=== PATIENT | female | born 1985 | race Hispanic/Latino ===

== ENCOUNTER 2022-07-31 12:40 | Inpatient (IN) | payer BC ==
[~2022-07-31] VITALS: Ht 157.5 cm; Wt 67.8 kg
[~2022-07-31 12:40] MED LIST: GLYCOPYRROLATE INJ 0.2 MG/ML VIAL ONE; LIDOCAINE HCL 2% LOCAL INJ 5 ML SDV VIAL INJ ONE; METFORMIN HCL500 MG PO; MIRALAX17 GM PO; ONDANSETRON HCL INJ 2MG/ML 2ML 2 MG/ML VIAL ONE; POVIDONE IODINE 0.05% 0.05 % ML PO ONE; PROPOFOL IV EMULSION 10 MG/ML 20 ML VIAL ONE; XYZAL5 MG PO
[2022-07-31 13:25] LABS: BASOPHILS # (AUTO) 0.1 (0.0-0.1); BASOPHILS % 0.2 % (0.0-1.0); EOSINOPHILS % 0.1 % (0.0-6.0); HEMOGLOBIN 6.9 g/dL (12.0-16.0); LYMPHOCYTES # (AUTO) 1.2 (1.0-3.2); LYMPHOCYTES % 4.6 % (18.0-39.1); MEAN CORPUSCULAR HEMOGLOBIN 31.5 pg (28-32); MEAN CORPUSCULAR HGB CONC 31.5 g/dL (31-35); MONOCYTES # (AUTO) 1.4 (0.2-0.8); MONOCYTES % 5.5 % (4.4-11.3); NEUTROPHILS # (AUTO) 22.7 (2.1-6.9); NEUTROPHILS % 88.7 % (38.7-80.0); PLATELET COUNT 436 x10e3/uL (140-360); RED BLOOD COUNT 2.19 x10e6/uL (3.6-5.1); RED CELL DISTRIBUTION WIDTH 13.7 % (11.7-14.4)
[2022-07-31] MEDS ORDERED: SODIUM CHLORIDE 0.9% 500ML 500 ML ONE (13:28)
[2022-07-31 13:30] LABS: HEMATOCRIT 21.9 % (34.2-44.1)
[2022-07-31] MEDS ORDERED: SODIUM CHLORIDE 0.9% 250ML 250 ML IV ONE (13:30)
[2022-07-31] MEDS ORDERED: SODIUM CHLORIDE 0.9% 500ML 500 ML IV ONE (13:30)
[2022-07-31 13:38] LABS: ALANINE AMINOTRANSFERASE 30 IU/L (0-55); ALBUMIN 2.6 g/dL (3.5-5.0); ALBUMIN/GLOBULIN RATIO 0.4 (0.8-2.0); ALKALINE PHOSPHATASE 267 IU/L (40-150); ANION GAP 21.2 mmol/L (8-16); BLOOD UREA NITROGEN 54 mg/dL (7-26); BUN/CREATININE RATIO 6 (6-25); CALCIUM 8.6 mg/dL (8.4-10.2); CARBON DIOXIDE 24 mmol/L (22-29); CHLORIDE 94 mmol/L (98-107); CREATININE, SERUM 9.11 mg/dL (0.57-1.11); GLUCOSE 90 mg/dL (74-118); MAGNESIUM 1.8 MG/DL (1.3-2.1); SODIUM 134 mmol/L (136-145)
[2022-07-31 13:48] LABS: POTASSIUM 5.2 mmol/L (3.5-5.1)
[2022-07-31] MEDS ORDERED: Vancomycin IV 1 GM in SODIUM CHLORIDE 0.9% 250ML 250 ML IV ONE (14:00)
[2022-07-31] MEDS ORDERED: ONDANSETRON HCL INJ 2MG/ML 2ML 2 MG/ML VIAL IV PRN (14:30)
[2022-07-31] MEDS: HYDROCODONE/APAP 7.5MG-325MG 1 EA TAB PO PRN ×2 (15:32→21:37)
[2022-07-31 16:00] LABS: % IRON SATURATION 14 % (15-50); IRON 25 ug/dL (50-170); TOTAL IRON BINDING CAPACITY 179 ug/dL (261-478); TRANSFERRIN 128 mg/dL (180-382)
[2022-07-31] MEDS ORDERED: SOD POLYSTYRENE SULFONATE SUSP 15 GM/60 ML BTL PO ONE (16:00)
[2022-07-31 16:50] VITALS: BP 119/67; PULSE 102; RESP 16; TEMP 100.3; O2SAT 100
[2022-07-31 16:56] VITALS: BP 119/67; PULSE 102; RESP 16; TEMP 100.3; O2SAT 100
[2022-07-31 17:00] VITALS: BP 119/67; PULSE 102; RESP 16; TEMP 100.3; O2SAT 100
[2022-07-31] MEDS: EPOETIN ALFA-EPBX 10,000 UNIT/ML VIAL SC SCH (17:15)
[2022-07-31] MEDS ORDERED: CALCIUM ACETAT667 MG PO (17:34)
[2022-07-31] MEDS ORDERED: DIALYVITE TABL1 EACH (17:34)
[2022-07-31] MEDS ORDERED: ONDANSETRON ODT4 MG PO (17:34)
[2022-07-31] MEDS ORDERED: AMLODIPINE BESY10 MG PO (17:34)
[2022-07-31 20:00] VITALS: BP 100/54; PULSE 87; RESP 16; TEMP 97.7; O2SAT 98
[2022-08-01] VITALS (8 sets, daily range): BP systolic 101–143; BP diastolic 50–64; PULSE 87–102; RESP 18–19; TEMP 98.8–100.6; O2SAT 93–98
[2022-08-01 06:38] LABS: ALBUMIN 2.1 g/dL (3.5-5.0); ALBUMIN/GLOBULIN RATIO 0.4 (0.8-2.0); ANION GAP 23.4 mmol/L (8-16); CALCIUM 8.1 mg/dL (8.4-10.2); CREATININE, SERUM 10.75 mg/dL (0.57-1.11); POTASSIUM 5.4 mmol/L (3.5-5.1)
[2022-08-01 07:03] LABS: BASOPHILS # (AUTO) 0.1 (0.0-0.1); BASOPHILS % 0.4 % (0.0-1.0); EOSINOPHILS % 0.2 % (0.0-6.0); LYMPHOCYTES # (AUTO) 1.5 (1.0-3.2); MEAN CORPUSCULAR HEMOGLOBIN 31.3 pg (28-32); MEAN CORPUSCULAR HGB CONC 30.9 g/dL (31-35); MEAN CORPUSCULAR VOLUME 101.1 fL (81-99); MONOCYTES # (AUTO) 1.3 (0.2-0.8); MONOCYTES % 5.4 % (4.4-11.3); NEUTROPHILS # (AUTO) 21.6 (2.1-6.9); NEUTROPHILS % 86.6 % (38.7-80.0); PLATELET COUNT 373 x10e3/uL (140-360); RED BLOOD COUNT 1.76 x10e6/uL (3.6-5.1); RED CELL DISTRIBUTION WIDTH 13.9 % (11.7-14.4)
[2022-08-01 07:13] LABS: HEMATOCRIT 17.8 % (34.2-44.1); HEMOGLOBIN 5.5 g/dL (12.0-16.0)
[2022-08-01] MEDS ORDERED: SODIUM CHLORIDE 0.9% 250ML 250 ML IV ONE (08:15)
[2022-08-01 08:52] LABS: LYMPHOCYTES % (MANUAL) 6 % (19-48); NEUTROPHILS % (MANUAL) 85 % (40-74)
[2022-08-01 08:53] LABS: BAND NEUTROPHILS % (MANUAL) 1 %; EOSINOPHILS % (MANUAL) 1 % (0-7); MONOCYTES % (MANUAL) 5 % (3.4-9.0); PLATELET ESTIMATE ADEQUATE; PLATELET MORPHOLOGY COMMENT NORMAL; RBC MORPHOLOGY COMMENT NORMAL
[2022-08-01] MEDS ORDERED: SODIUM CHLORIDE 0.9% 1000ML 2,000 ML ONE (09:24)
[2022-08-01] MEDS ORDERED: SODIUM CHLORIDE 0.9% 250ML 250 ML ONE ×2 (10:10→16:11)
[2022-08-01 10:14] LABS: % IRON SATURATION 15 % (15-50); IRON 21 ug/dL (50-170); TOTAL IRON BINDING CAPACITY 140 ug/dL (261-478); TRANSFERRIN 100 mg/dL (180-382)
[2022-08-01] MEDS: HYDROCODONE/APAP 7.5MG-325MG 1 EA TAB PO PRN (16:37)
[2022-08-01] MEDS: Vancomycin IV 1 GM in SODIUM CHLORIDE 0.9% 250ML 250 ML IV SCH (16:45)
[2022-08-01 21:19] LABS: BASOPHILS # (AUTO) 0.1 (0.0-0.1); BASOPHILS % 0.3 % (0.0-1.0); EOSINOPHILS % 0.1 % (0.0-6.0); HEMOGLOBIN 7.5 g/dL (12.0-16.0); LYMPHOCYTES # (AUTO) 1.5 (1.0-3.2); LYMPHOCYTES % 5.6 % (18.0-39.1); MEAN CORPUSCULAR HEMOGLOBIN 31.6 pg (28-32); MEAN CORPUSCULAR VOLUME 95.8 fL (81-99); MONOCYTES # (AUTO) 1.4 (0.2-0.8); MONOCYTES % 5.3 % (4.4-11.3); NEUTROPHILS # (AUTO) 23.9 (2.1-6.9); NEUTROPHILS % 87.6 % (38.7-80.0); PLATELET COUNT 377 x10e3/uL (140-360); RED BLOOD COUNT 2.37 x10e6/uL (3.6-5.1); RED CELL DISTRIBUTION WIDTH 14.2 % (11.7-14.4)
[2022-08-01 21:21] LABS: HEMATOCRIT 22.7 % (34.2-44.1)
[2022-08-01] MEDS: IRON SUCROSE 100 MG in SODIUM CHLORIDE 0.9% 100 ML IV SCH (21:58)
[2022-08-02] VITALS (7 sets, daily range): BP systolic 92–120; BP diastolic 49–58; PULSE 83–91; RESP 16–19; TEMP 98–100.5; O2SAT 92–98
[2022-08-02] MEDS: HYDROCODONE/APAP 7.5MG-325MG 1 EA TAB PO PRN (04:46)
[2022-08-02 06:48] LABS: BASOPHILS # (AUTO) 0.1 (0.0-0.1); BASOPHILS % 0.3 % (0.0-1.0); EOSINOPHILS # (AUTO) 0.1 (0.0-0.4); EOSINOPHILS % 0.2 % (0.0-6.0); HEMATOCRIT 23.7 % (34.2-44.1); HEMOGLOBIN 7.7 g/dL (12.0-16.0); LYMPHOCYTES # (AUTO) 1.3 (1.0-3.2); LYMPHOCYTES % 4.7 % (18.0-39.1); MEAN CORPUSCULAR HGB CONC 32.5 g/dL (31-35); MEAN CORPUSCULAR VOLUME 95.6 fL (81-99); MONOCYTES # (AUTO) 1.3 (0.2-0.8); MONOCYTES % 4.8 % (4.4-11.3); NEUTROPHILS # (AUTO) 23.9 (2.1-6.9); NEUTROPHILS % 89.3 % (38.7-80.0); PLATELET COUNT 406 x10e3/uL (140-360); RED BLOOD COUNT 2.48 x10e6/uL (3.6-5.1); RED CELL DISTRIBUTION WIDTH 14.6 % (11.7-14.4)
[2022-08-02 07:03] LABS: ANION GAP 18.3 mmol/L (8-16); CALCIUM 8.1 mg/dL (8.4-10.2); CREATININE, SERUM 6.39 mg/dL (0.57-1.11); POTASSIUM 4.3 mmol/L (3.5-5.1)
[2022-08-02 07:05] LABS: CHOL/HDL RATIO 18.4 (3.0-3.6)
[2022-08-02] MEDS ORDERED: HEPARIN SOD (PORCINE) 1000 UNIT/ML 30ML ONE (07:26)
[2022-08-02] MEDS ORDERED: LIDOCAINE HCL 2% LOCAL 20 ML VIAL ONE (07:26)
[2022-08-02] MEDS ORDERED: SODIUM CHLORIDE 0.9% 1000ML 1,000 ML ONE ×2 (07:27→07:30)
[2022-08-02] MEDS ORDERED: NITROGLYCERIN/D5W 200 MCG/ML 250 ML ONE (07:27)
[2022-08-02] MEDS ORDERED: IOPAMIDOL 370 MG/ML 100 ML INFUS..BTL INJ ONE ×2 (07:27→11:24)
[2022-08-02] MEDS ORDERED: HEPARIN SOD/SOD CHLORIDE 2,000 ML ONE (07:27)
[2022-08-02] MEDS ORDERED: MIDAZOLAM HCL 2 MG/2 ML VIAL ONE (07:29)
[2022-08-02] MEDS ORDERED: VERAPAMIL HCL 2.5 MG/ML 2 ML VIAL ONE (07:29)
[2022-08-02] MEDS ORDERED: FENTANYL CITRATE/PF 100MCG/2 ML INJ ONE (07:29)
[2022-08-02 08:03] LABS: LYMPHOCYTES % (MANUAL) 3 % (19-48); MONOCYTES % (MANUAL) 9 % (3.4-9.0); NEUTROPHILS % (MANUAL) 86 % (40-74)
[2022-08-02 08:04] LABS: PLATELET ESTIMATE ADEQUATE; PLATELET MORPHOLOGY COMMENT NORMAL; RBC MORPHOLOGY COMMENT NORMAL
[2022-08-02] MEDS: GABAPENTIN 100 MG CAP PO SCH ×3 (09:06→20:45)
[2022-08-02] MEDS ORDERED: CLOPIDOGREL BISULFATE 75 MG TAB ONE (10:06)
[2022-08-02] MEDS ORDERED: ASPIRIN 325 MG TAB ONE (10:06)
[2022-08-02] MEDS ORDERED: ALTEPLASE RECOMBINANT 2 MG/2 ML VIAL ONE (10:34)
[2022-08-02] MEDS ORDERED: SODIUM CHLORIDE 0.9% 100 ML ONE (10:35)
[2022-08-02] MEDS: EPOETIN ALFA-EPBX 10,000 UNIT/ML VIAL SC SCH (16:50)
[2022-08-02] MEDS: HYDROCODONE/APAP 10MG-325MG TAB PO PRN (20:45)
[2022-08-03] VITALS (12 sets, daily range): BP systolic 61–138; BP diastolic 34–75; PULSE 61–113; RESP 16–19; TEMP 96.2–102.5; O2SAT 93–100
[2022-08-03] MEDS ORDERED: SODIUM CHLORIDE 0.9% 250ML 250 ML ONE ×3 (01:36→13:43)
[2022-08-03] MEDS: HYDROCODONE/APAP 10MG-325MG TAB PO PRN (01:39)
[2022-08-03] MEDS ORDERED: NALOXONE HCL INJ 0.4 MG/ML AMP ONE (02:57)
[2022-08-03] MEDS ORDERED: LIDOCAINE HCL 1% LOCAL INJ 20 ML VIAL ONE (03:00)
[2022-08-03 03:21] LABS: ABG HCO3 27 mmol/L (22-26); ABG PCO2 26 mmHg (35-45); ABG PH 7.62 (7.35-7.45); ABG PO2 157 mmHg (80-105); ABG TCO2 28
[2022-08-03 03:27] LABS: BASOPHILS # (AUTO) 0.1 (0.0-0.1); BASOPHILS % 0.3 % (0.0-1.0); EOSINOPHILS # (AUTO) 0.1 (0.0-0.4); EOSINOPHILS % 0.3 % (0.0-6.0); LYMPHOCYTES # (AUTO) 1.9 (1.0-3.2); LYMPHOCYTES % 7.5 % (18.0-39.1); MEAN CORPUSCULAR HEMOGLOBIN 30.9 pg (28-32); MEAN CORPUSCULAR HGB CONC 33.2 g/dL (31-35); MEAN CORPUSCULAR VOLUME 93.2 fL (81-99); MONOCYTES # (AUTO) 1.3 (0.2-0.8); MONOCYTES % 5.1 % (4.4-11.3); NEUTROPHILS # (AUTO) 21.6 (2.1-6.9); NEUTROPHILS % 84.9 % (38.7-80.0); PLATELET COUNT 408 x10e3/uL (140-360); RED CELL DISTRIBUTION WIDTH 14.3 % (11.7-14.4)
[2022-08-03 03:31] LABS: HEMATOCRIT 20.5 % (34.2-44.1); HEMOGLOBIN 6.8 g/dL (12.0-16.0)
[2022-08-03 03:35] LABS: ALBUMIN 1.6 g/dL (3.5-5.0); ALBUMIN/GLOBULIN RATIO 0.3 (0.8-2.0); ANION GAP 17.6 mmol/L (8-16); CALCIUM 7.9 mg/dL (8.4-10.2); CREATININE, SERUM 8.27 mg/dL (0.57-1.11); POTASSIUM 4.6 mmol/L (3.5-5.1)
[2022-08-03 04:31] LABS: BASOPHILS # (AUTO) 0.1 (0.0-0.1); BASOPHILS % 0.3 % (0.0-1.0); EOSINOPHILS # (AUTO) 0.1 (0.0-0.4); EOSINOPHILS % 0.2 % (0.0-6.0); HEMATOCRIT 21.1 % (34.2-44.1); LYMPHOCYTES % 7.8 % (18.0-39.1); MEAN CORPUSCULAR HEMOGLOBIN 30.8 pg (28-32); MEAN CORPUSCULAR HGB CONC 32.2 g/dL (31-35); MEAN CORPUSCULAR VOLUME 95.5 fL (81-99); MONOCYTES # (AUTO) 1.2 (0.2-0.8); MONOCYTES % 4.6 % (4.4-11.3); NEUTROPHILS # (AUTO) 21.3 (2.1-6.9); NEUTROPHILS % 85.2 % (38.7-80.0); PLATELET COUNT 398 x10e3/uL (140-360); RED BLOOD COUNT 2.21 x10e6/uL (3.6-5.1); RED CELL DISTRIBUTION WIDTH 14.8 % (11.7-14.4)
[2022-08-03 04:34] LABS: HEMOGLOBIN 6.8 g/dL (12.0-16.0)
[2022-08-03 04:40] LABS: INR 1.58; PROTHROMBIN TIME 19.4 seconds (11.9-14.5)
[2022-08-03 04:47] LABS: ANION GAP 18.4 mmol/L (8-16); CALCIUM 7.8 mg/dL (8.4-10.2); CREATININE, SERUM 8.35 mg/dL (0.57-1.11); POTASSIUM 4.4 mmol/L (3.5-5.1)
[2022-08-03] MEDS ORDERED: SODIUM CHLORIDE 0.9% 250ML 250 ML IV ONE (06:15)
[2022-08-03] MEDS ORDERED: SODIUM CHLORIDE 0.9% 500ML 500 ML IV ONE (09:30)
[2022-08-03] MEDS ORDERED: SODIUM CHLORIDE 0.9% 1000ML 2,000 ML IV PRN (10:00)
[2022-08-03] MEDS ORDERED: KETAMINE HCL INJ 50 MG/ML 10 ML VIAL ONE (13:13)
[2022-08-03] MEDS ORDERED: MIDAZOLAM HCL 2 MG/2 ML VIAL ONE (13:13)
[2022-08-03] MEDS: IRON SUCROSE 100 MG in SODIUM CHLORIDE 0.9% 100 ML IV SCH (15:30)
[2022-08-03] MEDS: Vancomycin IV 1 GM in SODIUM CHLORIDE 0.9% 250ML 250 ML IV SCH (15:31)
[2022-08-03] MEDS: ASPIRIN 81 MG ENTERIC COATED PO SCH (16:15)
[2022-08-03] MEDS: CLOPIDOGREL BISULFATE 75 MG TAB PO SCH (16:16)
[2022-08-03] MEDS: TRAMADOL HCL 50 MG TAB PO PRN (16:16)
[2022-08-03 19:16] LABS: BASOPHILS # (AUTO) 0.1 (0.0-0.1); BASOPHILS % 0.3 % (0.0-1.0); EOSINOPHILS # (AUTO) 0.1 (0.0-0.4); EOSINOPHILS % 0.3 % (0.0-6.0); HEMATOCRIT 25.5 % (34.2-44.1); HEMOGLOBIN 8.5 g/dL (12.0-16.0); LYMPHOCYTES # (AUTO) 1.9 (1.0-3.2); LYMPHOCYTES % 7.3 % (18.0-39.1); MEAN CORPUSCULAR HEMOGLOBIN 29.6 pg (28-32); MEAN CORPUSCULAR HGB CONC 33.3 g/dL (31-35); MEAN CORPUSCULAR VOLUME 88.9 fL (81-99); MONOCYTES # (AUTO) 1.6 (0.2-0.8); MONOCYTES % 5.9 % (4.4-11.3); NEUTROPHILS # (AUTO) 22.4 (2.1-6.9); NEUTROPHILS % 83.8 % (38.7-80.0); PLATELET COUNT 389 x10e3/uL (140-360); RED BLOOD COUNT 2.87 x10e6/uL (3.6-5.1); RED CELL DISTRIBUTION WIDTH 16.7 % (11.7-14.4)
[2022-08-03] MEDS: ACETAMINOPHEN 325 MG TAB PO PRN (20:24)
[2022-08-04] VITALS (7 sets, daily range): BP systolic 107–118; BP diastolic 57–67; PULSE 87–103; RESP 17–20; TEMP 99–99.8; O2SAT 97–100
[2022-08-04 06:16] LABS: ANION GAP 18.5 mmol/L (8-16); CALCIUM 8.3 mg/dL (8.4-10.2); CREATININE, SERUM 5.86 mg/dL (0.57-1.11); POTASSIUM 4.5 mmol/L (3.5-5.1)
[2022-08-04 07:24] LABS: BASOPHILS # (AUTO) 0.1 (0.0-0.1); BASOPHILS % 0.5 % (0.0-1.0); EOSINOPHILS # (AUTO) 0.2 (0.0-0.4); EOSINOPHILS % 0.8 % (0.0-6.0); HEMATOCRIT 23.3 % (34.2-44.1); HEMOGLOBIN 7.9 g/dL (12.0-16.0); LYMPHOCYTES # (AUTO) 2.4 (1.0-3.2); LYMPHOCYTES % 9.4 % (18.0-39.1); MEAN CORPUSCULAR HEMOGLOBIN 30.7 pg (28-32); MEAN CORPUSCULAR HGB CONC 33.9 g/dL (31-35); MEAN CORPUSCULAR VOLUME 90.7 fL (81-99); MONOCYTES # (AUTO) 1.7 (0.2-0.8); MONOCYTES % 6.5 % (4.4-11.3); NEUTROPHILS # (AUTO) 20.5 (2.1-6.9); NEUTROPHILS % 80.3 % (38.7-80.0); RED BLOOD COUNT 2.57 x10e6/uL (3.6-5.1); RED CELL DISTRIBUTION WIDTH 17.2 % (11.7-14.4)
[2022-08-04 07:31] LABS: PLATELET COUNT 453 x10e3/uL (140-360)
[2022-08-04] MEDS: ASPIRIN 81 MG ENTERIC COATED PO SCH (09:11)
[2022-08-04] MEDS: CLOPIDOGREL BISULFATE 75 MG TAB PO SCH (09:11)
[2022-08-04 11:27] LABS: EOSINOPHILS % (MANUAL) 3 % (0-7); LYMPHOCYTES % (MANUAL) 11 % (19-48); MONOCYTES % (MANUAL) 7 % (3.4-9.0); NEUTROPHILS % (MANUAL) 79 % (40-74); PLATELET ESTIMATE SLIGHTLY INCREASED; PLATELET MORPHOLOGY COMMENT NORMAL
[2022-08-04 11:51] LABS: BASOPHILS # (AUTO) 0.1 (0.0-0.1); BASOPHILS % 0.4 % (0.0-1.0); EOSINOPHILS # (AUTO) 0.2 (0.0-0.4); EOSINOPHILS % 0.9 % (0.0-6.0); HEMATOCRIT 24.2 % (34.2-44.1); HEMOGLOBIN 8.1 g/dL (12.0-16.0); LYMPHOCYTES # (AUTO) 2.2 (1.0-3.2); LYMPHOCYTES % 8.5 % (18.0-39.1); MEAN CORPUSCULAR HEMOGLOBIN 30.3 pg (28-32); MEAN CORPUSCULAR HGB CONC 33.5 g/dL (31-35); MEAN CORPUSCULAR VOLUME 90.6 fL (81-99); MONOCYTES # (AUTO) 1.7 (0.2-0.8); MONOCYTES % 6.6 % (4.4-11.3); NEUTROPHILS # (AUTO) 20.8 (2.1-6.9); NEUTROPHILS % 79.8 % (38.7-80.0); PLATELET COUNT 442 x10e3/uL (140-360); RED BLOOD COUNT 2.67 x10e6/uL (3.6-5.1); RED CELL DISTRIBUTION WIDTH 16.9 % (11.7-14.4)
[2022-08-04 13:24] LABS: EOSINOPHILS % (MANUAL) 2 % (0-7); LYMPHOCYTES % (MANUAL) 16 % (19-48); MONOCYTES % (MANUAL) 5 % (3.4-9.0); NEUTROPHILS % (MANUAL) 77 % (40-74); PLATELET ESTIMATE SLIGHTLY INCREASED; PLATELET MORPHOLOGY COMMENT NORMAL
[2022-08-04] MEDS: EPOETIN ALFA-EPBX 10,000 UNIT/ML VIAL SC SCH (17:14)
[2022-08-04] MEDS: TRAMADOL HCL 50 MG TAB PO PRN (23:13)
[2022-08-04 23:43] LABS: INR 1.5; PROTHROMBIN TIME 18.6 seconds (11.9-14.5)
[2022-08-05] VITALS (10 sets, daily range): BP systolic 105–115; BP diastolic 58–63; PULSE 86–96; RESP 15–19; TEMP 98.2–99.7; O2SAT 92–100
[2022-08-05 05:41] LABS: INR 1.45; PROTHROMBIN TIME 18.2 seconds (11.9-14.5)
[2022-08-05] MEDS: CLOPIDOGREL BISULFATE 75 MG TAB PO SCH (08:47)
[2022-08-05] MEDS: ASPIRIN 81 MG ENTERIC COATED PO SCH (08:47)
[2022-08-05] MEDS: MUPIROCIN 2% OINT 22 GM TUBE TOP SCH (17:10)
[2022-08-05] MEDS: GABAPENTIN 100 MG CAP PO PRN (23:34)
[2022-08-05] MEDS: TRAMADOL HCL 50 MG TAB PO PRN (23:34)
[2022-08-06] VITALS (10 sets, daily range): BP systolic 104–164; BP diastolic 59–81; PULSE 80–99; RESP 16–20; TEMP 97.5–99.4; O2SAT 93–98
[2022-08-06 06:11] LABS: BASOPHILS # (AUTO) 0.1 (0.0-0.1); BASOPHILS % 0.3 % (0.0-1.0); EOSINOPHILS # (AUTO) 0.4 (0.0-0.4); EOSINOPHILS % 1.4 % (0.0-6.0); LYMPHOCYTES # (AUTO) 2.7 (1.0-3.2); LYMPHOCYTES % 9.6 % (18.0-39.1); MEAN CORPUSCULAR HEMOGLOBIN 30.3 pg (28-32); MEAN CORPUSCULAR VOLUME 91.7 fL (81-99); MONOCYTES # (AUTO) 1.6 (0.2-0.8); MONOCYTES % 5.5 % (4.4-11.3); NEUTROPHILS # (AUTO) 21.9 (2.1-6.9); NEUTROPHILS % 77.2 % (38.7-80.0); PLATELET COUNT 572 x10e3/uL (140-360); RED BLOOD COUNT 2.18 x10e6/uL (3.6-5.1); RED CELL DISTRIBUTION WIDTH 17.5 % (11.7-14.4)
[2022-08-06 06:14] LABS: HEMOGLOBIN 6.6 g/dL (12.0-16.0)
[2022-08-06 06:15] LABS: ALBUMIN 1.3 g/dL (3.5-5.0); ALBUMIN/GLOBULIN RATIO 0.3 (0.8-2.0); ANION GAP 19.5 mmol/L (8-16); CREATININE, SERUM 9.97 mg/dL (0.57-1.11); POTASSIUM 5.5 mmol/L (3.5-5.1)
[2022-08-06] MEDS ORDERED: SODIUM CHLORIDE 0.9% 250ML 250 ML IV ONE (07:00)
[2022-08-06 07:20] LABS: BAND NEUTROPHILS % (MANUAL) 1 %; EOSINOPHILS % (MANUAL) 4 % (0-7); LYMPHOCYTES % (MANUAL) 11 % (19-48); MONOCYTES % (MANUAL) 4 % (3.4-9.0); NEUTROPHILS % (MANUAL) 79 % (40-74); PLATELET ESTIMATE SLIGHTLY INCREASED
[2022-08-06 07:21] LABS: ANISOCYTOSIS SLIGHT; HYPOCHROMASIA SLIGHT; PLATELET MORPHOLOGY COMMENT NORMAL; RBC MORPHOLOGY COMMENT NORMAL
[2022-08-06] MEDS: ASPIRIN 81 MG ENTERIC COATED PO SCH (09:00)
[2022-08-06] MEDS: MUPIROCIN 2% OINT 22 GM TUBE TOP SCH ×2 (09:00→18:27)
[2022-08-06] MEDS: CLOPIDOGREL BISULFATE 75 MG TAB PO SCH (10:00)
[2022-08-06] MEDS ORDERED: SODIUM CHLORIDE 0.9% 250ML 250 ML ONE (15:45)
[2022-08-06] MEDS ORDERED: Vancomycin IV 1 GM in SODIUM CHLORIDE 0.9% 250ML 250 ML IV SCH (20:00)
[2022-08-06] MEDS: TRAMADOL HCL 50 MG TAB PO PRN (20:07)
[2022-08-06] MEDS: IRON SUCROSE 100 MG in SODIUM CHLORIDE 0.9% 100 ML IV SCH (20:08)
[2022-08-07] VITALS (9 sets, daily range): BP systolic 115–139; BP diastolic 64–71; PULSE 84–109; RESP 16–18; TEMP 98.1–100.6; O2SAT 95–98
[2022-08-07] MEDS: ACETAMINOPHEN 325 MG TAB PO PRN (01:20)
[2022-08-07 05:33] LABS: BASOPHILS # (AUTO) 0.2 (0.0-0.1); BASOPHILS % 0.7 % (0.0-1.0); EOSINOPHILS # (AUTO) 0.4 (0.0-0.4); EOSINOPHILS % 1.3 % (0.0-6.0); HEMATOCRIT 30.3 % (34.2-44.1); HEMOGLOBIN 10.3 g/dL (12.0-16.0); LYMPHOCYTES % 10.7 % (18.0-39.1); MEAN CORPUSCULAR VOLUME 88.3 fL (81-99); MONOCYTES # (AUTO) 1.5 (0.2-0.8); MONOCYTES % 5.5 % (4.4-11.3); NEUTROPHILS % 74.9 % (38.7-80.0); PLATELET COUNT 501 x10e3/uL (140-360); RED BLOOD COUNT 3.43 x10e6/uL (3.6-5.1); RED CELL DISTRIBUTION WIDTH 17.6 % (11.7-14.4)
[2022-08-07 09:08] LABS: ANISOCYTOSIS SLIGHT; BAND NEUTROPHILS % (MANUAL) 2 %; LYMPHOCYTES % (MANUAL) 12 % (19-48); MONOCYTES % (MANUAL) 9 % (3.4-9.0); NEUTROPHILS % (MANUAL) 74 % (40-74); PLATELET ESTIMATE ADEQUATE; PLATELET MORPHOLOGY COMMENT NORMAL; RBC MORPHOLOGY COMMENT NORMAL
[2022-08-07 09:09] LABS: TOXIC GRANULATION SLIGHT; VACUOLE,WBC SLIGHT
[2022-08-07] MEDS: CLOPIDOGREL BISULFATE 75 MG TAB PO SCH (09:47)
[2022-08-07] MEDS: ASPIRIN 81 MG ENTERIC COATED PO SCH (09:47)
[2022-08-07] MEDS: MUPIROCIN 2% OINT 22 GM TUBE TOP SCH ×2 (09:47→17:35)
[2022-08-07] MEDS: TRAMADOL HCL 50 MG TAB PO PRN ×2 (12:37→21:08)
[2022-08-07 14:12] LABS: INR 1.34; PROTHROMBIN TIME 17.1 seconds (11.9-14.5)
[2022-08-07 14:14] LABS: PARTIAL THROMBOPLASTIN TIME 64.1 seconds (23.8-35.5)
[2022-08-07] MEDS: CEFTRIAXONE 2 GM in SODIUM CHLORIDE 0.9% 100 ML IV SCH (15:26)
[2022-08-07] MEDS: EPOETIN ALFA-EPBX 10,000 UNIT/ML VIAL SC SCH (15:26)
[2022-08-08] VITALS (9 sets, daily range): BP systolic 127–140; BP diastolic 66–76; PULSE 80–97; RESP 16–22; TEMP 97.8–98.9; O2SAT 98–100
[2022-08-08 05:31] LABS: BASOPHILS # (AUTO) 0.1 (0.0-0.1); BASOPHILS % 0.4 % (0.0-1.0); EOSINOPHILS # (AUTO) 0.4 (0.0-0.4); EOSINOPHILS % 1.4 % (0.0-6.0); HEMATOCRIT 34.1 % (34.2-44.1); HEMOGLOBIN 11.4 g/dL (12.0-16.0); LYMPHOCYTES # (AUTO) 3.1 (1.0-3.2); LYMPHOCYTES % 10.2 % (18.0-39.1); MEAN CORPUSCULAR HEMOGLOBIN 30.2 pg (28-32); MEAN CORPUSCULAR HGB CONC 33.4 g/dL (31-35); MEAN CORPUSCULAR VOLUME 90.5 fL (81-99); MONOCYTES # (AUTO) 1.8 (0.2-0.8); MONOCYTES % 5.8 % (4.4-11.3); NEUTROPHILS # (AUTO) 23.4 (2.1-6.9); NEUTROPHILS % 75.5 % (38.7-80.0); PLATELET COUNT 562 x10e3/uL (140-360); RED BLOOD COUNT 3.77 x10e6/uL (3.6-5.1); RED CELL DISTRIBUTION WIDTH 18.3 % (11.7-14.4)
[2022-08-08 06:12] LABS: ANION GAP 22.6 mmol/L (8-16); CALCIUM 8.4 mg/dL (8.4-10.2); CREATININE, SERUM 7.59 mg/dL (0.57-1.11); POTASSIUM 4.6 mmol/L (3.5-5.1)
[2022-08-08 07:54] LABS: BAND NEUTROPHILS % (MANUAL) 2 %; EOSINOPHILS % (MANUAL) 3 % (0-7); LYMPHOCYTES % (MANUAL) 8 % (19-48); METAMYELOCYTES % (MANUAL) 2 % (0-0); MONOCYTES % (MANUAL) 3 % (3.4-9.0); MYELOCYTES % (MANUAL) 2 % (0-0); NEUTROPHILS % (MANUAL) 79 % (40-74)
[2022-08-08 07:55] LABS: ANISOCYTOSIS SLIGHT; PLATELET ESTIMATE MODERATELY INCREASED; PLATELET MORPHOLOGY COMMENT NORMAL; POLYCHROMASIA FEW; RBC MORPHOLOGY COMMENT NORMAL; TOXIC GRANULATION MODERATE
[2022-08-08] MEDS: ASPIRIN 81 MG ENTERIC COATED PO SCH (09:52)
[2022-08-08] MEDS: MUPIROCIN 2% OINT 22 GM TUBE TOP SCH ×2 (09:53→18:16)
[2022-08-08] MEDS: CLOPIDOGREL BISULFATE 75 MG TAB PO SCH (09:53)
[2022-08-08] MEDS: TRAMADOL HCL 50 MG TAB PO PRN ×5 (12:49→14:51)
[2022-08-08] MEDS: CEFTRIAXONE 2 GM in SODIUM CHLORIDE 0.9% 100 ML IV SCH (14:45)
[2022-08-08] MEDS ORDERED: SODIUM CHLORIDE 0.9% 100 ML ONE (16:51)
[2022-08-08] MEDS: IRON SUCROSE 100 MG in SODIUM CHLORIDE 0.9% 100 ML IV SCH (17:48)
[2022-08-08] MEDS: ACETAMINOPHEN 325 MG TAB PO PRN (21:52)
[2022-08-08] MEDS: GABAPENTIN 100 MG CAP PO PRN (21:53)
[2022-08-09] VITALS (8 sets, daily range): BP systolic 107–126; BP diastolic 62–71; PULSE 92–99; RESP 16–18; TEMP 98–98.9; O2SAT 98–100
[2022-08-09] MEDS: TRAMADOL HCL 50 MG TAB PO PRN (03:26)
[2022-08-09 05:53] LABS: BASOPHILS # (AUTO) 0.1 (0.0-0.1); BASOPHILS % 0.5 % (0.0-1.0); EOSINOPHILS # (AUTO) 0.3 (0.0-0.4); EOSINOPHILS % 1.1 % (0.0-6.0); HEMATOCRIT 35.3 % (34.2-44.1); HEMOGLOBIN 11.5 g/dL (12.0-16.0); LYMPHOCYTES # (AUTO) 2.6 (1.0-3.2); LYMPHOCYTES % 10.2 % (18.0-39.1); MEAN CORPUSCULAR HEMOGLOBIN 29.9 pg (28-32); MEAN CORPUSCULAR HGB CONC 32.6 g/dL (31-35); MEAN CORPUSCULAR VOLUME 91.9 fL (81-99); MONOCYTES # (AUTO) 1.5 (0.2-0.8); NEUTROPHILS # (AUTO) 19.4 (2.1-6.9); NEUTROPHILS % 76.9 % (38.7-80.0); PLATELET COUNT 561 x10e3/uL (140-360); RED BLOOD COUNT 3.84 x10e6/uL (3.6-5.1); RED CELL DISTRIBUTION WIDTH 18.8 % (11.7-14.4)
[2022-08-09 06:07] LABS: INR 1.28; PROTHROMBIN TIME 16.5 seconds (11.9-14.5)
[2022-08-09 06:09] LABS: PARTIAL THROMBOPLASTIN TIME 62.2 seconds (23.8-35.5)
[2022-08-09 06:50] LABS: BAND NEUTROPHILS % (MANUAL) 2 %; EOSINOPHILS % (MANUAL) 2 % (0-7); LYMPHOCYTES % (MANUAL) 12 % (19-48); MONOCYTES % (MANUAL) 4 % (3.4-9.0); NEUTROPHILS % (MANUAL) 79 % (40-74)
[2022-08-09 06:51] LABS: ANISOCYTOSIS SLIGHT; PLATELET ESTIMATE ADEQUATE; PLATELET MORPHOLOGY COMMENT NORMAL; POLYCHROMASIA FEW
[2022-08-09] MEDS: MUPIROCIN 2% OINT 22 GM TUBE TOP SCH ×2 (08:44→17:11)
[2022-08-09] MEDS: CLOPIDOGREL BISULFATE 75 MG TAB PO SCH (08:46)
[2022-08-09] MEDS: ASPIRIN 81 MG ENTERIC COATED PO SCH (08:46)
[2022-08-09 12:36] LABS: ALBUMIN 1.4 g/dL (3.5-5.0); BILIRUBIN,DIRECT 0.9 mg/dL (0.0-0.5)
[2022-08-09] MEDS: CEFTRIAXONE 2 GM in SODIUM CHLORIDE 0.9% 100 ML IV SCH (13:42)
[2022-08-09] MEDS: GABAPENTIN 100 MG CAP PO PRN (22:05)
[2022-08-10] VITALS (7 sets, daily range): BP systolic 121–149; BP diastolic 66–76; PULSE 85–107; RESP 18–20; TEMP 97.6–99.3; O2SAT 96–100
[2022-08-10 05:40] LABS: BASOPHILS # (AUTO) 0.2 (0.0-0.1); BASOPHILS % 0.8 % (0.0-1.0); EOSINOPHILS # (AUTO) 0.3 (0.0-0.4); EOSINOPHILS % 1.3 % (0.0-6.0); HEMATOCRIT 30.2 % (34.2-44.1); HEMOGLOBIN 10.1 g/dL (12.0-16.0); LYMPHOCYTES # (AUTO) 2.8 (1.0-3.2); LYMPHOCYTES % 10.9 % (18.0-39.1); MEAN CORPUSCULAR HEMOGLOBIN 30.3 pg (28-32); MEAN CORPUSCULAR HGB CONC 33.4 g/dL (31-35); MEAN CORPUSCULAR VOLUME 90.7 fL (81-99); MONOCYTES # (AUTO) 1.5 (0.2-0.8); MONOCYTES % 5.7 % (4.4-11.3); NEUTROPHILS # (AUTO) 19.6 (2.1-6.9); NEUTROPHILS % 76.3 % (38.7-80.0); PLATELET COUNT 518 x10e3/uL (140-360); RED BLOOD COUNT 3.33 x10e6/uL (3.6-5.1); RED CELL DISTRIBUTION WIDTH 18.7 % (11.7-14.4)
[2022-08-10 06:10] LABS: ANION GAP 17.2 mmol/L (8-16); CALCIUM 8.5 mg/dL (8.4-10.2); CREATININE, SERUM 7.65 mg/dL (0.57-1.11); POTASSIUM 4.2 mmol/L (3.5-5.1)
[2022-08-10 07:44] LABS: ANISOCYTOSIS SLIGHT; BAND NEUTROPHILS % (MANUAL) 1 %; LYMPHOCYTES % (MANUAL) 10 % (19-48); MONOCYTES % (MANUAL) 7 % (3.4-9.0); NEUTROPHILS % (MANUAL) 81 % (40-74); PLATELET ESTIMATE ADEQUATE; PLATELET MORPHOLOGY COMMENT NORMAL
[2022-08-10 07:45] LABS: RBC MORPHOLOGY COMMENT NORMAL
[2022-08-10] MEDS: CLOPIDOGREL BISULFATE 75 MG TAB PO SCH (08:46)
[2022-08-10] MEDS: MUPIROCIN 2% OINT 22 GM TUBE TOP SCH ×2 (08:46→17:31)
[2022-08-10] MEDS: ASPIRIN 81 MG ENTERIC COATED PO SCH (08:46)
[2022-08-10] MEDS ORDERED: PHYTONADIONE 10 MG/ML AMP SC ONE (09:00)
[2022-08-10] MEDS: CEFTRIAXONE 2 GM in SODIUM CHLORIDE 0.9% 100 ML IV SCH (15:04)
[2022-08-10] MEDS: IRON SUCROSE 100 MG in SODIUM CHLORIDE 0.9% 100 ML IV SCH (17:31)
[2022-08-10 19:59] LABS: INR 1.18; PROTHROMBIN TIME 15.5 seconds (11.9-14.5)
[2022-08-10] MEDS: PRAVASTATIN 20 MG TAB PO SCH (21:52)
[2022-08-11] VITALS (7 sets, daily range): BP systolic 110–159; BP diastolic 64–76; PULSE 93–105; RESP 16–20; TEMP 98.3–99.1; O2SAT 98–99
[2022-08-11] MEDS: ASPIRIN 81 MG ENTERIC COATED PO SCH (09:21)
[2022-08-11] MEDS: CLOPIDOGREL BISULFATE 75 MG TAB PO SCH (09:21)
[2022-08-11] MEDS: MUPIROCIN 2% OINT 22 GM TUBE TOP SCH ×2 (09:22→17:45)
[2022-08-11] MEDS ORDERED: NIFEDIPINE CR 30 MG TAB PO SCH (11:30)
[2022-08-11] MEDS ORDERED: PHYTONADIONE 5 MG TAB PO ONE (12:30)
[2022-08-11] MEDS: CEFTRIAXONE 2 GM in SODIUM CHLORIDE 0.9% 100 ML IV SCH (13:03)
[2022-08-11] MEDS: METOPROLOL SUCCINATE 25 MG TAB XL PO SCH (17:44)
[2022-08-11] MEDS: PRAVASTATIN 20 MG TAB PO SCH (21:18)
[2022-08-12] VITALS (9 sets, daily range): BP systolic 101–158; BP diastolic 56–85; PULSE 74–96; RESP 16–21; TEMP 97.5–98.3; O2SAT 97–100
[2022-08-12 06:02] LABS: BASOPHILS # (AUTO) 0.1 (0.0-0.1); BASOPHILS % 0.7 % (0.0-1.0); EOSINOPHILS # (AUTO) 0.3 (0.0-0.4); EOSINOPHILS % 1.7 % (0.0-6.0); HEMATOCRIT 30.6 % (34.2-44.1); LYMPHOCYTES # (AUTO) 2.3 (1.0-3.2); LYMPHOCYTES % 11.9 % (18.0-39.1); MEAN CORPUSCULAR HEMOGLOBIN 30.2 pg (28-32); MEAN CORPUSCULAR HGB CONC 32.7 g/dL (31-35); MEAN CORPUSCULAR VOLUME 92.4 fL (81-99); MONOCYTES # (AUTO) 1.2 (0.2-0.8); MONOCYTES % 6.1 % (4.4-11.3); NEUTROPHILS % 75.8 % (38.7-80.0); PLATELET COUNT 604 x10e3/uL (140-360); RED BLOOD COUNT 3.31 x10e6/uL (3.6-5.1); RED CELL DISTRIBUTION WIDTH 18.4 % (11.7-14.4)
[2022-08-12 06:19] LABS: INR 1.15; PROTHROMBIN TIME 15.2 seconds (11.9-14.5)
[2022-08-12] MEDS: METOPROLOL SUCCINATE 25 MG TAB XL PO SCH (09:00)
[2022-08-12] MEDS: MUPIROCIN 2% OINT 22 GM TUBE TOP SCH (09:52)
[2022-08-12] MEDS: ASPIRIN 81 MG ENTERIC COATED PO SCH (09:52)
[2022-08-12] MEDS: CLOPIDOGREL BISULFATE 75 MG TAB PO SCH (09:52)
[2022-08-12] MEDS: TRAMADOL HCL 50 MG TAB PO PRN (12:06)
[2022-08-12] MEDS: CEFTRIAXONE 2 GM in SODIUM CHLORIDE 0.9% 100 ML IV SCH (13:40)
[2022-08-12 18:30] LABS: BASOPHILS # (AUTO) 0.1 (0.0-0.1); BASOPHILS % 0.7 % (0.0-1.0); EOSINOPHILS # (AUTO) 0.3 (0.0-0.4); EOSINOPHILS % 1.5 % (0.0-6.0); HEMATOCRIT 32.7 % (34.2-44.1); HEMOGLOBIN 10.8 g/dL (12.0-16.0); LYMPHOCYTES # (AUTO) 2.1 (1.0-3.2); LYMPHOCYTES % 10.8 % (18.0-39.1); MEAN CORPUSCULAR HEMOGLOBIN 30.2 pg (28-32); MEAN CORPUSCULAR VOLUME 91.3 fL (81-99); MONOCYTES # (AUTO) 1.2 (0.2-0.8); NEUTROPHILS % 78.5 % (38.7-80.0); PLATELET COUNT 651 x10e3/uL (140-360); RED BLOOD COUNT 3.58 x10e6/uL (3.6-5.1)
[2022-08-12] MEDS: PRAVASTATIN 20 MG TAB PO SCH (22:01)
[2022-08-12] MEDS: ACETAMINOPHEN 325 MG TAB PO PRN (22:02)
[2022-08-13] VITALS (7 sets, daily range): BP systolic 130–143; BP diastolic 66–81; PULSE 80–100; RESP 14–19; TEMP 97.4–99.2; O2SAT 95–100
[2022-08-13] MEDS ORDERED: MUPIROCIN 2% OINT 22 GM TUBE ONE (06:24)
[2022-08-13] MEDS ORDERED: BUPIVACAINE HCL 0.5% INJ 30 ML VIAL INJ ONE (06:24)
[2022-08-13] MEDS ORDERED: BETAMETHASONE DISODIUM PHOS 6 MG/ML VIAL ONE (06:24)
[2022-08-13] MEDS ORDERED: LIDOCAINE HCL 1% LOCAL INJ 20 ML VIAL ONE (06:24)
[2022-08-13] MEDS: ONDANSETRON HCL 4 MG ORAL DISINTEGRATING TAB PO PRN (09:23)
[2022-08-13] MEDS: METOPROLOL SUCCINATE 25 MG TAB XL PO SCH (09:39)
[2022-08-13] MEDS ORDERED: POVIDONE IODINE 0.05% 0.05 % ML PO ONE (12:52)
[2022-08-13] MEDS ORDERED: LIDOCAINE HCL 2% LOCAL INJ 5 ML SDV VIAL INJ ONE (12:52)
[2022-08-13] MEDS ORDERED: PROPOFOL IV EMULSION 10 MG/ML 20 ML VIAL ONE (12:52)
[2022-08-13] MEDS ORDERED: ONDANSETRON HCL INJ 2MG/ML 2ML 2 MG/ML VIAL ONE (12:52)
[2022-08-13] MEDS ORDERED: FENTANYL CITRATE/PF 100MCG/2 ML INJ ONE (13:03)
[2022-08-13] MEDS ORDERED: MIDAZOLAM HCL 2 MG/2 ML VIAL ONE (13:03)
[2022-08-13] MEDS: CEFTRIAXONE 2 GM in SODIUM CHLORIDE 0.9% 100 ML IV SCH (13:54)
[2022-08-13] MEDS: GABAPENTIN 100 MG CAP PO PRN (15:21)
[2022-08-13] MEDS: TRAMADOL HCL 50 MG TAB PO PRN (16:14)
[2022-08-13] MEDS: IRON SUCROSE 100 MG in SODIUM CHLORIDE 0.9% 100 ML IV SCH (17:01)
[2022-08-13] MEDS: PRAVASTATIN 20 MG TAB PO SCH (20:32)
[2022-08-13] MEDS: CLOPIDOGREL BISULFATE 75 MG TAB PO SCH (20:32)
[2022-08-13] MEDS: ASPIRIN 81 MG ENTERIC COATED PO SCH (20:33)
[2022-08-14] VITALS (8 sets, daily range): BP systolic 123–131; BP diastolic 64–71; PULSE 78–92; RESP 16–19; TEMP 97–99; O2SAT 97–100
[2022-08-14 06:03] LABS: BASOPHILS # (AUTO) 0.2 (0.0-0.1); BASOPHILS % 0.9 % (0.0-1.0); EOSINOPHILS # (AUTO) 0.3 (0.0-0.4); EOSINOPHILS % 1.7 % (0.0-6.0); HEMATOCRIT 26.8 % (34.2-44.1); HEMOGLOBIN 8.4 g/dL (12.0-16.0); LYMPHOCYTES # (AUTO) 2.8 (1.0-3.2); LYMPHOCYTES % 14.7 % (18.0-39.1); MEAN CORPUSCULAR HEMOGLOBIN 30.2 pg (28-32); MEAN CORPUSCULAR HGB CONC 31.3 g/dL (31-35); MEAN CORPUSCULAR VOLUME 96.4 fL (81-99); MONOCYTES % 10.2 % (4.4-11.3); NEUTROPHILS # (AUTO) 13.5 (2.1-6.9); NEUTROPHILS % 70.3 % (38.7-80.0); PLATELET COUNT 655 x10e3/uL (140-360); RED BLOOD COUNT 2.78 x10e6/uL (3.6-5.1); RED CELL DISTRIBUTION WIDTH 18.1 % (11.7-14.4)
[2022-08-14 06:40] LABS: ANION GAP 21.9 mmol/L (8-16); CALCIUM 8.7 mg/dL (8.4-10.2); CREATININE, SERUM 7.96 mg/dL (0.57-1.11); MAGNESIUM 2.1 MG/DL (1.3-2.1); POTASSIUM 4.9 mmol/L (3.5-5.1)
[2022-08-14] MEDS: TRAMADOL HCL 50 MG TAB PO PRN (06:42)
[2022-08-14] MEDS: ONDANSETRON HCL 4 MG ORAL DISINTEGRATING TAB PO PRN ×2 (06:42→16:32)
[2022-08-14 06:58] LABS: PHOSPHORUS 7.4 MG/DL (2.3-4.7)
[2022-08-14] MEDS ORDERED: TRAMADOL HCL 50 MG TAB PO PRN (09:00)
[2022-08-14] MEDS: ASPIRIN 81 MG ENTERIC COATED PO SCH (09:17)
[2022-08-14] MEDS: CLOPIDOGREL BISULFATE 75 MG TAB PO SCH (09:18)
[2022-08-14] MEDS: METOPROLOL SUCCINATE 25 MG TAB XL PO SCH (09:18)
[2022-08-14] MEDS ORDERED: SENNA-S TABLET PO SCH (09:30)
[2022-08-14] MEDS: HYDROCODONE/APAP 5MG-325MG TAB PO PRN ×2 (12:21→17:14)
[2022-08-14] MEDS: CEFTRIAXONE 2 GM in SODIUM CHLORIDE 0.9% 100 ML IV SCH (13:02)
[2022-08-14] MEDS: ONDANSETRON HCL INJ 2MG/ML 2ML 2 MG/ML VIAL IV PRN (17:14)
[2022-08-14] MEDS ORDERED: DEXTROSE 5%/0.9% SOD CHL 1,000 ML IV SCH (17:30)
[2022-08-14] MEDS: PRAVASTATIN 20 MG TAB PO SCH (21:00)
[2022-08-14] MEDS: SENNA-S TABLET PO SCH (21:00)
[2022-08-14] MEDS: METOCLOPRAMIDE HCL 10 MG/2ML VIAL IV SCH (21:39)
[2022-08-15] VITALS (8 sets, daily range): BP systolic 132–166; BP diastolic 68–88; PULSE 77–92; RESP 16–21; TEMP 97.5–98.4; O2SAT 96–100
[2022-08-15] MEDS: ONDANSETRON HCL INJ 2MG/ML 2ML 2 MG/ML VIAL IV PRN (03:16)
[2022-08-15] MEDS: METOCLOPRAMIDE HCL 10 MG/2ML VIAL IV SCH ×3 (06:05→16:10)
[2022-08-15 06:12] LABS: BASOPHILS # (AUTO) 0.2 (0.0-0.1); BASOPHILS % 0.9 % (0.0-1.0); EOSINOPHILS # (AUTO) 0.3 (0.0-0.4); EOSINOPHILS % 1.5 % (0.0-6.0); HEMATOCRIT 25.3 % (34.2-44.1); HEMOGLOBIN 7.9 g/dL (12.0-16.0); LYMPHOCYTES # (AUTO) 2.7 (1.0-3.2); LYMPHOCYTES % 16.7 % (18.0-39.1); MEAN CORPUSCULAR HEMOGLOBIN 29.8 pg (28-32); MEAN CORPUSCULAR HGB CONC 31.2 g/dL (31-35); MEAN CORPUSCULAR VOLUME 95.5 fL (81-99); MONOCYTES # (AUTO) 1.1 (0.2-0.8); NEUTROPHILS # (AUTO) 11.8 (2.1-6.9); NEUTROPHILS % 72.4 % (38.7-80.0); PLATELET COUNT 721 x10e3/uL (140-360); RED BLOOD COUNT 2.65 x10e6/uL (3.6-5.1); RED CELL DISTRIBUTION WIDTH 17.7 % (11.7-14.4)
[2022-08-15 06:29] LABS: ANION GAP 23.3 mmol/L (8-16); CALCIUM 9.2 mg/dL (8.4-10.2); CREATININE, SERUM 9.52 mg/dL (0.57-1.11)
[2022-08-15 06:36] LABS: POTASSIUM 6.3 mmol/L (3.5-5.1)
[2022-08-15] MEDS: SENNA-S TABLET PO SCH ×2 (09:00→21:00)
[2022-08-15] MEDS ORDERED: HEPARIN SOD (PORCINE) 1000 UNIT/ML SDV ONE (13:43)
[2022-08-15] MEDS ORDERED: HEPARIN SOD (PORCINE) 1000 UNIT/ML SDV IV PRN (16:45)
[2022-08-15] MEDS: IRON SUCROSE 100 MG in SODIUM CHLORIDE 0.9% 100 ML IV SCH (18:00)
[2022-08-15] MEDS: LACTULOSE SYRUP 20 GM/30 ML UDC PO PRN (18:41)
[2022-08-15] MEDS: CEFTRIAXONE 2 GM in SODIUM CHLORIDE 0.9% 100 ML IV SCH (21:26)
[2022-08-15] MEDS: PRAVASTATIN 20 MG TAB PO SCH (21:26)
[2022-08-15] MEDS: METOPROLOL SUCCINATE 25 MG TAB XL PO SCH (21:27)
[2022-08-15] MEDS: CLOPIDOGREL BISULFATE 75 MG TAB PO SCH (21:27)
[2022-08-15] MEDS: ASPIRIN 81 MG ENTERIC COATED PO SCH (21:28)
[2022-08-15] MEDS: EPOETIN ALFA-EPBX 10,000 UNIT/ML VIAL SC SCH (22:03)
[2022-08-16] VITALS (10 sets, daily range): BP systolic 115–140; BP diastolic 61–78; PULSE 76–102; RESP 14–18; TEMP 97.4–98.9; O2SAT 96–100
[2022-08-16 06:08] LABS: ANION GAP 17.3 mmol/L (8-16); CALCIUM 8.7 mg/dL (8.4-10.2); CREATININE, SERUM 5.53 mg/dL (0.57-1.11); POTASSIUM 4.3 mmol/L (3.5-5.1)
[2022-08-16] MEDS: METOCLOPRAMIDE HCL 10 MG/2ML VIAL IV SCH ×3 (08:30→16:49)
[2022-08-16] MEDS: SENNA-S TABLET PO SCH ×2 (09:21→21:47)
[2022-08-16] MEDS: LACTULOSE SYRUP 20 GM/30 ML UDC PO PRN (12:03)
[2022-08-16] MEDS: CLOPIDOGREL BISULFATE 75 MG TAB PO SCH (21:47)
[2022-08-16] MEDS: ASPIRIN 81 MG ENTERIC COATED PO SCH (21:47)
[2022-08-16] MEDS: PRAVASTATIN 20 MG TAB PO SCH (21:47)
[2022-08-16] MEDS: CEFTRIAXONE 2 GM in SODIUM CHLORIDE 0.9% 100 ML IV SCH (21:51)
[2022-08-16] MEDS: METOPROLOL SUCCINATE 25 MG TAB XL PO SCH (21:51)
[2022-08-17] VITALS (9 sets, daily range): BP systolic 129–158; BP diastolic 70–89; PULSE 73–92; RESP 15–18; TEMP 97.5–98.8; O2SAT 96–100
[2022-08-17 05:53] LABS: BASOPHILS # (AUTO) 0.1 (0.0-0.1); BASOPHILS % 0.9 % (0.0-1.0); EOSINOPHILS # (AUTO) 0.3 (0.0-0.4); EOSINOPHILS % 2.2 % (0.0-6.0); HEMOGLOBIN 7.6 g/dL (12.0-16.0); LYMPHOCYTES # (AUTO) 2.6 (1.0-3.2); LYMPHOCYTES % 21.1 % (18.0-39.1); MEAN CORPUSCULAR HEMOGLOBIN 30.2 pg (28-32); MEAN CORPUSCULAR HGB CONC 31.7 g/dL (31-35); MEAN CORPUSCULAR VOLUME 95.2 fL (81-99); MONOCYTES # (AUTO) 1.1 (0.2-0.8); MONOCYTES % 9.1 % (4.4-11.3); NEUTROPHILS # (AUTO) 8.1 (2.1-6.9); NEUTROPHILS % 65.7 % (38.7-80.0); PLATELET COUNT 705 x10e3/uL (140-360); RED BLOOD COUNT 2.52 x10e6/uL (3.6-5.1); RED CELL DISTRIBUTION WIDTH 17.3 % (11.7-14.4)
[2022-08-17 06:21] LABS: ANION GAP 19.7 mmol/L (8-16); CALCIUM 8.7 mg/dL (8.4-10.2); CREATININE, SERUM 7.56 mg/dL (0.57-1.11); POTASSIUM 4.7 mmol/L (3.5-5.1)
[2022-08-17] MEDS: METOCLOPRAMIDE HCL 10 MG/2ML VIAL IV SCH ×3 (08:30→17:29)
[2022-08-17] MEDS: SENNA-S TABLET PO SCH ×2 (08:53→20:35)
[2022-08-17] MEDS ORDERED: SODIUM CHLORIDE 0.9% 250ML 250 ML IV ONE (09:45)
[2022-08-17] MEDS: IRON SUCROSE 100 MG in SODIUM CHLORIDE 0.9% 100 ML IV SCH (17:29)
[2022-08-17] MEDS: LACTULOSE SYRUP 20 GM/30 ML UDC PO PRN (18:32)
[2022-08-17] MEDS: PRAVASTATIN 20 MG TAB PO SCH (20:35)
[2022-08-17] MEDS: ASPIRIN 81 MG ENTERIC COATED PO SCH (20:35)
[2022-08-17] MEDS: CLOPIDOGREL BISULFATE 75 MG TAB PO SCH (20:36)
[2022-08-17] MEDS: METOPROLOL SUCCINATE 25 MG TAB XL PO SCH (20:36)
[2022-08-17] MEDS: EPOETIN ALFA-EPBX 10,000 UNIT/ML VIAL SC SCH (21:00)
[2022-08-18] VITALS (7 sets, daily range): BP systolic 134–151; BP diastolic 67–83; PULSE 70–84; RESP 16–18; TEMP 98–98.7; O2SAT 98–100
[2022-08-18 06:09] LABS: BASOPHILS # (AUTO) 0.2 (0.0-0.1); BASOPHILS % 1.4 % (0.0-1.0); EOSINOPHILS # (AUTO) 0.3 (0.0-0.4); EOSINOPHILS % 2.4 % (0.0-6.0); HEMATOCRIT 32.2 % (34.2-44.1); HEMOGLOBIN 10.5 g/dL (12.0-16.0); LYMPHOCYTES # (AUTO) 2.5 (1.0-3.2); MEAN CORPUSCULAR HGB CONC 32.6 g/dL (31-35); MONOCYTES # (AUTO) 1.2 (0.2-0.8); MONOCYTES % 10.4 % (4.4-11.3); NEUTROPHILS # (AUTO) 7.5 (2.1-6.9); NEUTROPHILS % 63.8 % (38.7-80.0); PLATELET COUNT 708 x10e3/uL (140-360); RED CELL DISTRIBUTION WIDTH 17.3 % (11.7-14.4)
[2022-08-18 06:37] LABS: ANION GAP 18.3 mmol/L (8-16); CALCIUM 9.4 mg/dL (8.4-10.2); CREATININE, SERUM 5.14 mg/dL (0.57-1.11); POTASSIUM 4.3 mmol/L (3.5-5.1)
[2022-08-18] MEDS: SENNA-S TABLET PO SCH ×2 (09:46→20:27)
[2022-08-18] MEDS: METOCLOPRAMIDE HCL 10 MG/2ML VIAL IV SCH ×3 (09:46→17:44)
[2022-08-18] MEDS: ASPIRIN 81 MG ENTERIC COATED PO SCH (20:26)
[2022-08-18] MEDS: CLOPIDOGREL BISULFATE 75 MG TAB PO SCH (20:26)
[2022-08-18] MEDS: PRAVASTATIN 20 MG TAB PO SCH (20:27)
[2022-08-18] MEDS: METOPROLOL SUCCINATE 25 MG TAB XL PO SCH (20:29)
[2022-08-19] VITALS (7 sets, daily range): BP systolic 137–146; BP diastolic 71–79; PULSE 75–84; RESP 15–18; TEMP 97.9–98.5; O2SAT 96–100
[2022-08-19] MEDS: METOCLOPRAMIDE HCL 10 MG/2ML VIAL IV SCH ×3 (09:19→17:11)
[2022-08-19] MEDS: SENNA-S TABLET PO SCH ×2 (09:20→20:20)
[2022-08-19] MEDS: CEFTRIAXONE 2 GM in SODIUM CHLORIDE 0.9% 100 ML IV SCH (09:20)
[2022-08-19] MEDS: ACETAMINOPHEN 325 MG TAB PO PRN (17:18)
[2022-08-19] MEDS: ASPIRIN 81 MG ENTERIC COATED PO SCH (20:19)
[2022-08-19] MEDS: CLOPIDOGREL BISULFATE 75 MG TAB PO SCH (20:20)
[2022-08-19] MEDS: PRAVASTATIN 20 MG TAB PO SCH (20:20)
[2022-08-19] MEDS: METOPROLOL SUCCINATE 25 MG TAB XL PO SCH (20:23)
[2022-08-20] VITALS (8 sets, daily range): BP systolic 143–164; BP diastolic 73–92; PULSE 75–85; RESP 16–21; TEMP 97.4–98.3; O2SAT 99–100
[2022-08-20] MEDS: METOCLOPRAMIDE HCL 10 MG/2ML VIAL IV SCH ×4 (08:43→16:30)
[2022-08-20] MEDS: SENNA-S TABLET PO SCH ×2 (08:43→20:47)
[2022-08-20 09:05] LABS: ANION GAP 23.5 mmol/L (8-16); CALCIUM 9.5 mg/dL (8.4-10.2); CREATININE, SERUM 9.25 mg/dL (0.57-1.11); POTASSIUM 5.5 mmol/L (3.5-5.1)
[2022-08-20 15:08] LABS: INR 1.29; PROTHROMBIN TIME 16.6 seconds (11.9-14.5)
[2022-08-20 15:09] LABS: PARTIAL THROMBOPLASTIN TIME 58.1 seconds (23.8-35.5)
[2022-08-20] MEDS: CEFTRIAXONE 2 GM in SODIUM CHLORIDE 0.9% 100 ML IV SCH (15:31)
[2022-08-20] MEDS: CLOPIDOGREL BISULFATE 75 MG TAB PO SCH (20:45)
[2022-08-20] MEDS: PRAVASTATIN 20 MG TAB PO SCH (20:46)
[2022-08-20] MEDS: METOPROLOL SUCCINATE 25 MG TAB XL PO SCH (20:47)
[2022-08-20] MEDS: ASPIRIN 81 MG ENTERIC COATED PO SCH (20:48)
[2022-08-20] MEDS: EPOETIN ALFA-EPBX 10,000 UNIT/ML VIAL SC SCH (20:55)
[2022-08-21 00:19] VITALS: BP 143/75; PULSE 80; RESP 18; TEMP 98.5; O2SAT 98
[2022-08-21 04:51] VITALS: BP 140/75; PULSE 76; RESP 17; TEMP 99; O2SAT 98
[2022-08-21 08:09] VITALS: BP 133/75; PULSE 75; RESP 21; TEMP 98.4; O2SAT 100
[2022-08-21] MEDS: CEFTRIAXONE 2 GM in SODIUM CHLORIDE 0.9% 100 ML IV SCH (08:53)
[2022-08-21] MEDS: METOCLOPRAMIDE HCL 10 MG/2ML VIAL IV SCH ×3 (08:54→16:41)
[2022-08-21] MEDS: SENNA-S TABLET PO SCH (08:56)
[2022-08-21 11:58] VITALS: BP 144/74; PULSE 73; RESP 21; TEMP 98.1; O2SAT 100
[2022-08-21] MEDS ORDERED: SODIUM CHLORIDE 0.9% 250ML 250 ML ONE (14:43)
[2022-08-21] MEDS ORDERED: LIDOCAINE HCL 1% LOCAL INJ 20 ML VIAL ONE (14:43)
[2022-08-21] MEDS ORDERED: HEPARIN SOD (PORCINE) 1000 UNIT/ML SDV ONE (15:52)
[2022-08-21 16:10] VITALS: BP 130/79; PULSE 82; TEMP 98.7; O2SAT 100
[2022-08-21] MEDS ORDERED: CIPRO250 MG PO (16:34)
[2022-08-21] MEDS ORDERED: DOXYCYCLINE HY100 MG PO (16:35)
[2022-08-21] MEDS ORDERED: GABAPENTIN100 MG PO (16:36)
[2022-08-21] MEDS ORDERED: ULTRAM 50MG50 MG PO (16:37)
[2022-08-21 17:30] VITALS: BP 110/78; PULSE 72; RESP 18; TEMP 98.2; O2SAT 100
[2022-08-22] MEDS ORDERED: METOCLOPRAMIDE HCL 10 MG TAB PO SCH (07:30)
== END 2022-08-21 18:55 | disposition home or self-care (01) | DRG 853 ==
LOC: ER 12:54 → ERHOLD 14:22 → MED/SURG2 16:23
PROVIDERS: ADMIT Internal Medicine; ATTEND Internal Medicine
PROC: 5A1D70Z Performance of Urinary Filtration, Intermittent, Less than 6 Hours Per Day (ICD-10-PCS; principal; 2022-08-01)
PROC: 30233N1 Transfusion of Nonautologous Red Blood Cells into Peripheral Vein, Percutaneous Approach (ICD-10-PCS; 2022-08-01)
PROC: 04CM3ZZ Extirpation of Matter from Right Popliteal Artery, Percutaneous Approach (ICD-10-PCS; 2022-08-02)
PROC: 04CP3ZZ Extirpation of Matter from Right Anterior Tibial Artery, Percutaneous Approach (ICD-10-PCS; 2022-08-02)
PROC: 04CR3ZZ Extirpation of Matter from Right Posterior Tibial Artery, Percutaneous Approach (ICD-10-PCS; 2022-08-02)
PROC: B4101ZZ Fluoroscopy of Abdominal Aorta using Low Osmolar Contrast (ICD-10-PCS; 2022-08-02)
PROC: B41F1ZZ Fluoroscopy of Right Lower Extremity Arteries using Low Osmolar Contrast (ICD-10-PCS; 2022-08-02)
PROC: 3E05317 Introduction of Other Thrombolytic into Peripheral Artery, Percutaneous Approach (ICD-10-PCS; 2022-08-02)
PROC: 0QBQ0ZZ Excision of Right Toe Phalanx, Open Approach (ICD-10-PCS; 2022-08-03)
PROC: 0J9Q0ZZ Drainage of Right Foot Subcutaneous Tissue and Fascia, Open Approach (ICD-10-PCS; 2022-08-03)
PROC: 0Y6M0Z9 Detachment at Right Foot, Partial 1st Ray, Open Approach (ICD-10-PCS; 2022-08-13)
PROC: 0Y6M0ZB Detachment at Right Foot, Partial 2nd Ray, Open Approach (ICD-10-PCS; 2022-08-13)
PROC: 0Y6M0ZC Detachment at Right Foot, Partial 3rd Ray, Open Approach (ICD-10-PCS; 2022-08-13)
PROC: 0Y6M0ZD Detachment at Right Foot, Partial 4th Ray, Open Approach (ICD-10-PCS; 2022-08-13)
PROC: 0Y6M0ZF Detachment at Right Foot, Partial 5th Ray, Open Approach (ICD-10-PCS; 2022-08-13)
PROC: 02H633Z Insertion of Infusion Device into Right Atrium, Percutaneous Approach (ICD-10-PCS; 2022-08-15)
PROC: 0JH63XZ Insertion of Tunneled Vascular Access Device into Chest Subcutaneous Tissue and Fascia, Percutaneous Approach (ICD-10-PCS; 2022-08-21)
PROC: 02H633Z Insertion of Infusion Device into Right Atrium, Percutaneous Approach (ICD-10-PCS; 2022-08-21)
DX: A41.9 Sepsis, unspecified organism (principal); N18.6 End stage renal disease; M86.9 Osteomyelitis, unspecified; I12.0 Hypertensive chronic kidney disease with stage 5 chronic kidney disease or end stage renal disease; I96 Gangrene, not elsewhere classified; L02.611 Cutaneous abscess of right foot; E10.52 Type 1 diabetes mellitus with diabetic peripheral angiopathy with gangrene; L03.116 Cellulitis of left lower limb; E87.20 Acidosis, unspecified; R65.20 Severe sepsis without septic shock; D63.1 Anemia in chronic kidney disease; J45.909 Unspecified asthma, uncomplicated; E87.5 Hyperkalemia; E10.51 Type 1 diabetes mellitus with diabetic peripheral angiopathy without gangrene; E10.69 Type 1 diabetes mellitus with other specified complication; E10.22 Type 1 diabetes mellitus with diabetic chronic kidney disease; I95.9 Hypotension, unspecified; E10.621 Type 1 diabetes mellitus with foot ulcer; L97.519 Non-pressure chronic ulcer of other part of right foot with unspecified severity; D75.838 Other thrombocytosis; Z99.2 Dependence on renal dialysis; Z20.822 Contact with and (suspected) exposure to COVID-19; Z90.49 Acquired absence of other specified parts of digestive tract; Z79.84 Long term (current) use of oral hypoglycemic drugs; Z79.82 Long term (current) use of aspirin
CPT/HCPCS: 0223U; 36415; 36556; 36558; 36600; 37186; 37211; 37224; 37225; 37228; 37232; 71045; 74018; 74470; 75630; 76705; 76937; 77001; 80048; 80053; 80061; 80076; 82140; 82607; 82805; 82948; 83036; 83540; 83605; 83735; 84100; 84132; 84443; 84466; 84484; 84702; 85025; 85610; 85730; 86706; 86850; 86900; 86920; 87040; 87071; 87075; 87186; 87205; 87340; 87350; 88304; 88307; 88311; 90962; 93005; 93306; 93925; 94799; 96361; 99152; 99153; 99252; 99284; C1752; C1769; C1887; C1892; C1894; J0692; J0696; J1644; J1756; J2001; J2250; J2310; J2405; J2543; J2765; J2997; J3430; J7030; J7040; J7042; J7050; P9016; Q0162; Q9967